=== PATIENT | male | born 2000 | race Caucasian/White ===

== ENCOUNTER 2019-07-03 01:37 | Emergency (ER) | payer OTHER ==
[2019-07-03 02:46] VITALS: BP 124/65; PULSE 81; TEMP 98; BMI 26.8
--- NOTE | 2019-07-03 03:29 | PDOC ---
*Physical Exam - Vital Signs Last Vital Signs Temp Pulse Resp BP Pulse Ox 98.0 F 81 19 124/65 100 07/03/19 01:45 07/03/19 01:45 07/03/19 01:45 07/03/19 01:45 07/03/19 01:45 Medical Decision Making - Medical Decision Making 07/03/19 03:29 Patient seen by the advanced practice provider under my direct supervision. Ancillary testing reviewed as necessary. I agree with plan as outlined by the advanced practice provider. Discharge - Discharge Information Problems reviewed: Yes Clinical Impression/Diagnosis: Otitis externa Qualifiers: Otitis externa type: swimmer's ear Chronicity: acute Laterality: bilateral Qualified Code(s): H60.333 - Swimmer's ear, bilateral Condition: Fair - Additional Discharge Information Prescriptions: Amoxicillin/Potassium Clav [Augmentin 875-125 Tablet] 1 each PO BID #20 tablet Ofloxacin Otic [Floxin Otic -] 10 drop OT BID #1 bottle - Follow up/Referral - Patient Discharge Instructions Patient Printed Discharge Instructions: Otitis Externa Additional Instructions: take ibuprofen every 6 hours as needed for pain take tylenol every 4 hours as needed for pain take augmentin as prescribed use ofloxacin as prescribed. follow up with your doctor as soon as possible. - Post Discharge Activity Work/Back to School Note: Back to Work
--- NOTE | 2019-07-03 03:39 | PDOC ---
History of Present Illness - General Chief Complaint: Ear Problem Stated Complaint: PAIN Time Seen by Provider: 07/03/19 03:18 History Source: Patient - History of Present Illness Initial Comments: 07/03/19 03:46 18 year old male with b/l ear pain x 1 days. patient reports that he just returned from the [facility] on Vacation and was swimming Past History - Past Medical History Allergies/Adverse Reactions: Allergies Allergy/AdvReac Type Severity Reaction Status Date / Time No Known Allergies Allergy Verified 07/03/19 02:46 Home Medications: Ambulatory Orders Amoxicillin/Potassium Clav [Augmentin 875-125 Tablet] 1 each PO BID #20 tablet 07/03/19 Ofloxacin Otic [Floxin Otic -] 10 drop OT BID #1 bottle 07/03/19 - Psycho Social/Smoking Cessation Hx Smoking History: Never smoked Hx Alcohol Use: No Drug/Substance Use Hx: No *Physical Exam - Vital Signs Last Vital Signs Temp Pulse Resp BP Pulse Ox 98.0 F 81 19 124/65 100 07/03/19 01:45 07/03/19 01:45 07/03/19 01:45 07/03/19 01:45 07/03/19 01:45 - Physical Exam General Appearance: Yes: Appropriately Dressed HEENT: positive: Nasal Congestion, Other (b/l Ear canal erythema with drainage, pain to ear when tragus is pulled. no mastoid tenderness) Respiratory/Chest: positive: Lungs Clear, Normal Breath Sounds Medical Decision Making - Medical Decision Making 07/03/19 06:40 A: swimmers ear P: ofloxacin oral antibiotics pain control Discharge - Discharge Information Problems reviewed: Yes Clinical Impression/Diagnosis: Otitis externa Qualifiers: Otitis externa type: swimmer's ear Chronicity: acute Laterality: bilateral Qualified Code(s): H60.333 - Swimmer's ear, bilateral Condition: Fair - Additional Discharge Information Prescriptions: Amoxicillin/Potassium Clav [Augmentin 875-125 Tablet] 1 each PO BID #20 tablet Ofloxacin Otic [Floxin Otic -] 10 drop OT BID #1 bottle - Follow up/Referral - Patient Discharge Instructions Patient Printed Discharge Instructions: Otitis Externa Additional Instructions: take ibuprofen every 6 hours as needed for pain take tylenol every 4 hours as needed for pain take augmentin as prescribed use ofloxacin as prescribed. follow up with your doctor as soon as possible. - Post Discharge Activity Work/Back to School Note: Back to Work
[2019-07-03] MEDS ORDERED: IBUPROFEN 600 MG TABLET (FP) PO ONE ×2 (03:43→03:53)
[2019-07-03] MEDS ORDERED: AMOX TR/POT CLAV 875MG/125MG TABLETS (FP) PO ONE (03:43)
[2019-07-03] MEDS ORDERED: AMOX TR/POT CLAV 875MG/125MG TABLETS (FP) ONE (03:53)
== END 2019-07-03 04:02 | disposition home or self-care (01) ==
LOC: JER 01:37
DX: H60.333 Swimmer's ear, bilateral (principal)
CPT/HCPCS: 99281-25